=== PATIENT | female | born 1980 | race Caucasian/White ===

== ENCOUNTER 2017-07-31 10:02 | Emergency (ER) | payer OTHER ==
[~2017-07-31] VITALS: Ht 167.6 cm; Wt 69.1 kg
[2017-07-31 10:07] VITALS: BP 143/83
[2017-07-31] MEDS ORDERED: ZOFRAN ODT4 MG PO (11:05)
[2017-08-01] MEDS ORDERED: FIORICET 50-301 EACH PO (23:59)
[2017-08-01] MEDS ORDERED: MOTRIN800 MG PO (23:59)
== END 2017-07-31 11:21 | disposition home or self-care (01) ==
LOC: EME 10:02
DX: S06.0X0A Concussion without loss of consciousness, initial encounter (principal); Y92.838 Other recreation area as the place of occurrence of the external cause; W19.XXXA Unspecified fall, initial encounter; I49.8 Other specified cardiac arrhythmias; F17.200 Nicotine dependence, unspecified, uncomplicated
CPT/HCPCS: 99281; 99283

== ENCOUNTER 2017-08-01 21:27 | Emergency (ER) | payer OTHER ==
[~2017-08-01] VITALS: Ht 167.6 cm; Wt 70.9 kg
[~2017-08-01 21:27] MED LIST: ZOFRAN ODT4 MG PO
[2017-08-01] MEDS ORDERED: MOTRIN800 MG PO (23:59)
[2017-08-01] MEDS ORDERED: FIORICET 50-301 EACH PO (23:59)
[2017-08-02 00:35] VITALS: BP 132/85
== END 2017-08-02 00:36 | disposition home or self-care (01) ==
LOC: EME 21:27
DX: S06.0X0A Concussion without loss of consciousness, initial encounter (principal); W19.XXXA Unspecified fall, initial encounter; H92.01 Otalgia, right ear; F17.200 Nicotine dependence, unspecified, uncomplicated
CPT/HCPCS: 99281; 99283